=== PATIENT | female | born 2000 | race Caucasian/White ===

== ENCOUNTER 2021-11-05 06:26 | Day surgery (SDC) | payer BC ==
[2021-11-03 13:48] VITALS: BMI 19.8
[~2021-11-05 06:26] MED LIST: DEXAMETHASONE SOD PHOSPHATE 4 MG/ML 1 ML VIAL IV PRN; FAMOTIDINE 20 MG/2 ML VIAL IV PRN; LACTATED RINGERS 1,000 ML IV SCH; MELOXICAM 7.5 MG TAB PO PRN; MIDAZOLAM 2 MG/2 ML VIAL IV PRN; ONDANSETRON 4 MG/2 ML VIAL IVP PRN; Pre Op ABX Message 1 EACH MISC MISCELLANE ONE
[2021-11-05 06:56] VITALS: RESP 16
[2021-11-05] MEDS ORDERED: HYDROmorphone 0.5 MG/0.5 ML SYRINGE IVP PRN (07:00)
[2021-11-05] MEDS ORDERED: LIDOCAINE 1% (10MG/ML) FOR IV START INTRADERMA ONE (07:12)
[2021-11-05] MEDS ORDERED: DEXAMETHASONE SOD PHOSPHATE 4 MG/ML 1 ML VIAL IVP ONE (07:13)
[2021-11-05] MEDS ORDERED: MIDAZOLAM 2 MG/2 ML VIAL ONE (07:43)
[2021-11-05] MEDS ORDERED: HYDROmorphone (PF) 1 MG/ML ONE (07:43)
[2021-11-05] MEDS ORDERED: PROPOFOL 10 MG/ML 20 ML VIAL IV ONE (07:43)
[2021-11-05] MEDS ORDERED: LIDOCAINE 1% INJ 10MG/ML (20 ML MDV) ONE (07:43)
[2021-11-05] MEDS ORDERED: DEXAMETHASONE SOD PHOSPHATE 10 MG/ML 1 ML VIAL ONE (07:43)
[2021-11-05] MEDS ORDERED: fentaNYL (PF) 50 MCG/ML 2 ML AMP ONE (07:43)
[2021-11-05] MEDS ORDERED: ROCURONIUM 10 MG/ML (5 ML VIAL) IV ONE (07:43)
[2021-11-05] MEDS ORDERED: LACTATED RINGERS 1,000 ML IV ONE (08:12)
[2021-11-05] MEDS ORDERED: BUPIVACAIN-EPI 0.25%-1:200,000 30 ML VIAL SQ ONE ×2 (08:13)
[2021-11-05] MEDS ORDERED: LIDOCAINE 1% (PF) 10 MG/ML (30 ML SDV) SQ ONE (08:13)
--- NOTE | 2021-11-05 08:52 | P.OP ---
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 This been going on for well over a year and has been on multiple antibiotics with no improvement. Patient said persistently enlarged tonsils with exudate and halitosis seen and intermittent severe swelling. Always enlarged every 1-2 months is any exacerbation causing throat pain dysphasia etc. she always notices purulence on the tonsils and their atrophic touching the midline. She has failed medical therapy and wishes to have them removed. All risks, benefits and alternative therapies were discussed. Risks of bleeding, infection, need for secondary surgery etc. etc. were explained. Consent was obtained and all questions were answered. Operative Findings: Massively enlarged tonsils and adenoids and tonsils were touching in the midline cryptic with a large amount of exudate seen. Description of Procedure: Prior to surgery all risks, benefits, and alternative therapies were discussed in detail. Risks of bleeding, infection, need for secondary surgery, airway problems, anesthetic complications, etc. etc. were discussed in detail. Consent was obtained and all questions were answered. OPERATIVE PROCEDURE: This patient was taken to the operative room and placed in the supine position. A functioning IV line was in placed and the patient was monitored throughout the entire case by the department of anesthesia. The patient underwent general anesthetic with intubation and tube was secured. A McIvor mouth gag was placed into the patients mouth with care to avoid any trauma to the lips, teeth, gums or tongue. Mouth was opened and tongue was depressed. The tonsils were grasped with an Allis forceps and brought medially bilaterally. A subcapsular dissection was performed utilizing an Evac-70 handpiece with an Arthrotec setting of 7. The tonsils were removed without incident bilaterally and the tonsillar fossae were inspected and bleeding was nonexistent and stopped spontaneously with Coblation. A Marcaine and lidocaine mixture was injected into the peritonsillar area for anesthesia postoperatively. After the tonsillar fossae were reinspected and no bleeding was seen attention was then paid to the nasopharynx where a red rubber catheter was placed into the nose and out the mouth and used to retract the soft palate. With use of indirect mirror examination and the Coblation hand wand, the adenoid tissue was removed in that fashion again utilizing an Evac-70 handpiece with Arthrotec setting of 7. The adenoid tissues were removed and fulgurated. The patient tolerated this procedure well. The nasopharynx shows no signs of any bleeding. McIvor mouth gag and the red rubber catheter were removed. The stomach was suctioned and the patient was taken to postanesthesia recovery in excellent condition having tolerated this procedure well. The patient will follow up in the office in one week as scheduled.
[2021-11-05 09:19] VITALS: TEMP 97.2
[2021-11-05] MEDS ORDERED: ONDANSETRON 4 MG/2 ML VIAL ONE (10:12)
[2021-11-05] MEDS ORDERED: METOCLOPRAMIDE 5 MG/ML 2 ML VIAL ONE (10:12)
[2021-11-05] MEDS ORDERED: ONDANSETRON 4 MG/2 ML VIAL IVP ONE (10:15)
[2021-11-05] MEDS ORDERED: METOCLOPRAMIDE 5 MG/ML 2 ML VIAL IVP ONE (10:15)
[2021-11-05 10:32] VITALS: BP 111/73; PULSE 61
== END 2021-11-05 11:15 | disposition home or self-care (01) ==
LOC: OR 06:26
PROVIDERS: ATTEND Otolaryngology
DX: J35.03 Chronic tonsillitis and adenoiditis (principal)
CPT/HCPCS: 81025; 88304; 42821; J2250; J1100 ×2; J2765; J2405; J2001 ×2; J3010; J1170; J2704

== ENCOUNTER 2024-01-29 23:29 | Inpatient (IN) | payer BC, OTHER ==
[2024-01-29] MEDS: LACTATED RINGERS 1,000 ML IV SCH (23:40)
[2024-01-29] MEDS ORDERED: TERBUTALINE 1 MG/ML VIAL SQ PRN (23:57)
[2024-01-29] MEDS ORDERED: OXYTOCIN 10 UNIT/ML 1 ML VIAL IM PRN (23:57)
[2024-01-29] MEDS ORDERED: METHYLERGONOVINE 0.2 MG/ML 1 ML AMP IM PRN (23:57)
[2024-01-29] MEDS ORDERED: TRANEXAMIC 1,000 MG/100ML-NACL 1,000 MG in EMPTY BAG 1 BAG IV PRN (23:57)
[2024-01-29] MEDS ORDERED: CARBOPROST TROMETHAMINE 250 MCG/ML 1 ML AMP IM PRN (23:57)
[2024-01-29] MEDS ORDERED: miSOPROStoL 200 MCG TAB PO PRN (23:57)
[2024-01-30 00:25] LABS: Basophils % (A) 0 %; Eosinophils # (A) 0.1 k/uL (0-0.7); Eosinophils % (A) 1 %; HCT 36.8 % (34.0-46.0); HGB 12.2 gm/dL (11.4-16.0); Lymphocytes # (A) 1.8 k/uL (1.0-4.8); Lymphocytes % (A) 19 %; MCH 29.9 pg (25.0-35.0); MCHC 33.1 g/dL (31.0-37.0); MCV 90.3 fL (80.0-100.0); Mean Platelet Volume 10.6; Monocytes # (A) 0.6 k/uL (0-1.0); Monocytes % (A) 6 %; Neutrophils % (A) 72 %; Platelet Count 221 k/uL (150-450); RBC 4.08 m/uL (3.80-5.40); RDW 13.8 % (11.5-15.5); WBC 9.7 k/uL (3.8-10.6)
[2024-01-30 00:48] LABS: ALT 11 U/L (4-34); AST 19 U/L (14-36); Blood Urea Nitrogen 8 mg/dL (7-17); LDH 184 U/L (120-246); Uric Acid 5.3 mg/dL (3.7-7.4)
[2024-01-30] MEDS ORDERED: fentaNYL (PF) 50 MCG/ML 5 ML AMP ONE (01:06)
[2024-01-30] MEDS ORDERED: ROPIVACAINE 5 MG/ML 30 ML VIAL ONE (01:06)
[2024-01-30] MEDS ORDERED: SODIUM CHLORIDE 0.9% 250 ML BAG ONE (01:06)
[2024-01-30 02:26] LABS: INR 0.8 (<1.2); Partial Thromboplastin Time 24.2 sec (22.0-30.0); Prothrombin Time 9.6 sec (10.0-12.5)
[2024-01-30 02:32] LABS: Appearance,Urine Clear (Clear); Bilirubin,Urine Negative (Negative); Blood,Urine Negative (Negative); Color,Urine Colorless; Glucose,Urine (UA) Negative (Negative); Ketones,Urine Trace (Negative); Leukocyte Esterase,Urine Negative (Negative); Nitrite,Urine Negative (Negative); PH, Urine 7.5 (5.0-8.0); Protein,Urine Negative (Negative); Specific Gravity,Urine 1.016 (1.001-1.035); Urobilinogen,Urine <2.0 mg/dL (<2.0)
[2024-01-30] MEDS: OXYTOCIN 30 UNITS/500 ML NS 30 UNIT in SALINE 1 500ML.BAG IV SCH (03:16)
[2024-01-30] MEDS: LIDOCAINE 0.5% (PF) 5 MG/ML (50 ML SDV) SQ PRN (03:28)
--- NOTE | 2024-01-30 03:46 | P.HPOB ---
History of Present Illness H&P Date: 01/30/24 Chief Complaint: Leakage of fluid, contractions Ms. Newby is a 23 year old at 39 weeks and 6 days with EDC of 01/29/2024 by 7 week who presents to labor and delivery with spontaneous rupture of membranes and regular, painful uterine contractions. The has been essentially uncomplicated. She endorses normal movement. work-up: blood type A positive, antibody screen negative, rubella immune, VDRL non-reactive, HBsAg negative, HIV negative, HCV Ab negative, gonorrhea negative, chlamydia positive 07/12/24 s/p tx > negative DEENA 10/19/23, 1 hour GTT wnl, GBS negative. Past Medical History Past Medical History: No Reported History History of Any Multi-Drug Resistant Organisms: None Reported Past Surgical History: No Surgical Hx Reported Past Anesthesia/Blood Transfusion Reactions: No Reported Reaction Additional Past Anesthesia/Blood Transfusion Reaction / Comment(s): Has never had anesthesia. Past Psychological History: No Psychological Hx Reported Smoking Status: Never smoker Past Alcohol Use History: None Reported Past Drug Use History: None Reported - Past Family History Mother Family Medical History: Cancer Medications and Allergies Home Medications Medication Instructions Recorded Confirmed Type Ferrous Sulfate [Iron] 1 tab PO DAILY 01/29/24 01/29/24 History Ondansetron [Zofran] 1 tab PO DAILY 01/29/24 01/29/24 History Vit No.179/Iron/Folic 1 tab PO DAILY 01/29/24 01/29/24 History [ Tablet] Allergies Allergy/AdvReac Type Severity Reaction Status Date / Time No Known Allergies Allergy Verified 11/05/21 07:03 Exam Vital Signs Temp Pulse Resp BP Pulse Ox 01/30/24 00:13 96.9 F L 57 L 16 153/92 98 01/29/24 23:40 96.9 F L 57 L 16 153/92 98 Intake and Output 01/29/24 01/29/24 01/30/24 14:59 22:59 06:59 Output Total 300 Balance -300 Output: Urine 300 Other: # Voids 1 Weight 90.718 kg Focused physical exam is performed. This is a healthy-appearing in no apparent distress. Breathing is non-labored. Abdomen is gravid and non-tender. Cervical exam is 7-8 cm, 90% effacement,-1 station per the OB RN. Thick meconium stained fluid is noted. Extremities non-tender and non-edematous. heart tones are Category I and tocometer is graphing contractions every 2-4 minutes. Results Result Diagrams: 01/30/24 00:00 01/29/24 23:56 Abnormal Lab Results - Last 24 Hours (Table) 01/29/24 01/30/24 01/30/24 Range/Units 23:56 00:00 02:10 PT 9.6 L (10.0-12.5) sec Creatinine 0.48 L (0.52-1.04) mg/dL Urine Ketones Trace H (Negative) Assessment and Plan Assessment: 23 year old at 39 weeks and 6 days with SROM, labor, thick meconium Plan: Admit, clear liquid diet, epidural prn, expectant management, continuous EFM and tocometer, close monitoring of patient. Anticipate vaginal delivery.
[2024-01-30] MEDS ORDERED: ACETAMINOPHEN TAB 325 MG TAB PO PRN (03:49)
[2024-01-30] MEDS ORDERED: diphenhydrAMINE 50 MG CAP PO PRN (03:49)
[2024-01-30] MEDS ORDERED: LANOLIN CREAM 1 GM TUBE TOPICAL PRN (03:49)
[2024-01-30] MEDS ORDERED: ZOLPIDEM 5 MG TAB PO PRN (03:49)
[2024-01-30] MEDS ORDERED: BENZOCAINE/MENTHOL SPRAY 1 GM/SPRAY AEROSOL TOPICAL PRN (03:49)
[2024-01-30] MEDS ORDERED: HYDROCORTISONE 2.5% RECTAL CREAM 30 GM TUBE RECTAL PRN (03:49)
[2024-01-30] MEDS ORDERED: SIMETHICONE 80 MG CHEWABLE PO PRN (03:49)
[2024-01-30] MEDS ORDERED: diphenhydrAMINE 50 MG/ML 1 ML VIAL IVP PRN ×2 (03:49)
[2024-01-30] MEDS ORDERED: diphenhydrAMINE 25 MG CAP PO PRN (03:49)
--- NOTE | 2024-01-30 06:52 | P.PROBDLV ---
Vaginal Delivery Note - . Vaginal Delivery Note: DATE OF SERVICE: 01/30/2024 PROCEDURE: Normal Vaginal Delivery ATTENDING: Dr. Liudmila Toussaint MD ESTIMATED BLOOD LOSS: 200 mL FINDINGS: VFI, Apgars 8/9. Weight 7 pounds and 2 ounces (3240 grams) PROCEDURE: Ms. Newby is a 23 year old at 39 weeks and 5 days presenting to labor and delivery for spontaneous rupture of membranes 2300 on 01/28 with thick meconium. Upon arrival the patient was dilated 6-7 centimeters and xiao regularly. She received epidural anesthesia per her request. The patient was completely dilated at 257. She pushed effectively with Category I heart tones. A viable female infant was delivered at 314 without difficulty. The was placed on the maternal abdomen and bulb suctioned. The infant was noted to be spontaneously crying. Cord was clamped and cut after a 1-minute delay. The infant was handed off to the pediatric team. Placenta was delivered whole with gentle cord traction at 316. Oxytocin was started to facilitate uterine tone. Uterine fundus was found to be firm and below the umbilicus upon fundal massage. Thorough examination of the cervix, vagina, periurethral area, and perineum revealed bilateral periuretheral lacerations and a 1st degree perineal laceration. These areas were infiltrated with lidocaine and repiared with 3-0 Vicryl and 2-0 Vicryl respectively. The patient is stable and allowed to begin the bonding process.
[2024-01-30] MEDS: SENNOSIDES-DOCUSATE SODIUM 1 EACH TAB PO SCH (08:20)
--- NOTE | 2024-01-30 09:40 | P.MSEPDOC ---
Presenting Problems - Arrival Data Date of Arrival on Unit: 01/29/24 Time of Arrival on Unit: 23:29 Mode of Transport: Wheelchair - Complaint OB-Reason for Admission/Chief Complaint: Possible Onset of Labor, Rule Out SROM Comment: SROM 2300- at home, pt. present to unit, amnisure positive, thick mec fluid Medical History - Information : 1 Para: 0 Term: 0 : 0 Abortions: Spontaneous or Elective: 0 Number of Living Children: 0 - Gestational Age Gestational Age by MARIA A (wks/days): 39 Weeks and 6 Days Review of Systems - Review of Systems Constitutional: No problems Breast: No problems ENT: No problems Cardiovascular: No problems Respiratory: No problems Gastrointestinal: No problems Genitourinary: No problems Musculoskeletal: No problems Neurological: No problems Skin: No problems Vital Signs - Temperature Temperature: 97.9 F Temperature Source: Axillary - Pulse Pulse Oximetery Pulse Rate: 80 Pulse Assessment Method: Pulse Oximetry - Respirations Respiratory Rate: 18 Oxygen Delivery Method: Room Air O2 Sat by Pulse Oximetry: 97 - Blood Pressure Right Arm Blood Pressure: 119/78 Blood Pressure Mean: 91 Blood Pressure Source: Automatic Cuff Medical Screen Scoring - Cervical Exam Dilation (cm): 7 Effacement (%): 80 Station: -2 Membranes: Ruptured - Uterine Contractions Frequency From (mins): 4 Frequency To (mins): 5 Duration From (seconds): 50 Duration To (seconds): 60 Intensity: Mild Resting: Soft to palpation - Assessment - Baby A Baseline FHR: 110 Heart Rate - NICHD Category: Category I (Normal) NST: Reactive Maternal Triage Index - Maternal Triage Index Presenting for scheduled procedure w/no complaint: No - Stat/Priority 1 Stat Priority 1: No - Urgent/Priority 2 Urgent Priority 2: Yes Provider Notified: Liudmila Toussaint Provider Notified Time: 23:40 Criteria Met for Priority 2: admit for labor, PIH labs Disposition - Disposition OB Disposition: Admit I agree with the RN Medical Screening Exam: Yes Case reviewed; plan agreed upon as documented in EMR&OBIX.: Yes Diagnosis: ENCOUNTER FOR FULL-TERM UNCOMPLICATED DELIVERY
[2024-01-30] MEDS: IBUPROFEN 600 MG TAB PO PRN (20:31)
[2024-01-31 00:10] VITALS: RESP 16
[2024-01-31 08:12] VITALS: BP 123/84; PULSE 65; TEMP 97.7
--- NOTE | 2024-01-31 08:59 | P.DS ---
Providers Date of admission: 01/30/24 00:08 Expected date of discharge: 01/31/24 Attending physician: Gina Arredondo Primary care physician: Stated None - Discharge Diagnosis(es) (1) Term Current Visit: Yes Status: Acute (2) Active labor Current Visit: Yes Status: Acute (3) Status post vaginal delivery Current Visit: Yes Status: Acute (4) Obstetrical laceration Current Visit: Yes Status: Acute Hospital Course: This is a 23-year-old 1 now para 1 that presented to labor and delivery on 01/28 with complaints of regular painful contractions. Patient was noted to be in active labor and admitted to labor and delivery. Patient had been receiving routine care which had been essentially uncomplicated. Patient did have a history of a positive chlamydia culture on 1122 which was treated and a negative test of cure in September. Patient had spontaneous rupture of membranes with thick meconium fluid at 2300. Patient did receive an epidural for pain control. Patient progressed to complete began pushing and had a normal spontaneous vaginal delivery of a viable female at 314, weight of 7 pounds 2.3 ounces. Patient did sustain bilateral periurethral lacerations which were repaired in the usual fashion. Patient has done well . On this day #1 she is ambulating and voiding without difficulty. Tolerating a regular diet without nausea or vomiting. She states her pain is well- controlled with oral ibuprofen. She is breast-feeding without difficulty. She would like discharge home today. Patient Condition at Discharge: Good Plan - Discharge Summary New Discharge Prescriptions: No Action Vit No.179/Iron/Folic [ Tablet] 1 tab PO DAILY Ondansetron [Zofran] 1 tab PO DAILY Ferrous Sulfate [Iron] 1 tab PO DAILY Discharge Medication List Ferrous Sulfate [Iron] 1 tab PO DAILY 01/29/24 [History] Ondansetron [Zofran] 1 tab PO DAILY 01/29/24 [History] Vit No.179/Iron/Folic [ Tablet] 1 tab PO DAILY 01/29/24 [History] Follow up Appointment(s)/Referral(s): Gina Arredondo DO [Doctor of Osteopathic Medicine] - 03/14/24 8:45 am Patient Instructions/Handouts: Vaginal Delivery (DC), Vaginal Delivery (GEN) Activity/Diet/Wound Care/Special Instructions: No intercourse, tampons, or tub baths. No heavy lifting greater than a gallon of milk. No driving for two weeks. Call with any fever, shakes or chills, with any pain not alleviated by over the counter meds, or with any quesions or concerns. [id number] ibuprofen 600 mg or 3 tablets every 6 hours as needed for pain. Discharge Disposition: HOME SELF-CARE
[2024-01-31 09:11] LABS: Basophils # (A) 0.1 k/uL (0-0.2); Basophils % (A) 1 %; Eosinophils # (A) 0.1 k/uL (0-0.7); Eosinophils % (A) 1 %; HCT 32.3 % (34.0-46.0); HGB 10.5 gm/dL (11.4-16.0); Lymphocytes # (A) 1.6 k/uL (1.0-4.8); Lymphocytes % (A) 16 %; MCH 29.8 pg (25.0-35.0); MCHC 32.6 g/dL (31.0-37.0); MCV 91.2 fL (80.0-100.0); Mean Platelet Volume 10.3; Monocytes # (A) 0.6 k/uL (0-1.0); Monocytes % (A) 6 %; Neutrophils # (A) 7.6 k/uL (1.3-7.7); Neutrophils % (A) 75 %; Platelet Count 200 k/uL (150-450); RBC 3.54 m/uL (3.80-5.40); WBC 10.2 k/uL (3.8-10.6)
== END 2024-01-31 11:30 | disposition home or self-care (01) | DRG 807 ==
LOC: FBPOP 23:29 → 4FBP 01-30 00:08
PROVIDERS: ADMIT Obstetrics & Gynecology; ATTEND Obstetrics & Gynecology Obstetrics
PROC: 10E0XZZ Delivery of Products of Conception, External Approach (ICD-10-PCS; principal; 2024-01-30)
PROC: 4A1HXCZ Monitoring of Products of Conception, Cardiac Rate, External Approach (ICD-10-PCS; 2024-01-30)
PROC: 0HQ9XZZ Repair Perineum Skin, External Approach (ICD-10-PCS; 2024-01-30)
DX: O77.0 Labor and delivery complicated by meconium in amniotic fluid (principal); Z37.0 Single live birth; O70.0 First degree perineal laceration during delivery; Z3A.39 39 weeks gestation of pregnancy; Z79.899 Other long term (current) drug therapy
CPT/HCPCS: 81003; 82565; 83615; 84112; 84450; 84460; 84520; 84550; 85025; 85384; 85610; 85730; 86850; 86900; 86901; 99213